=== PATIENT | female | born 1950 | race Caucasian/White ===

== ENCOUNTER → 2023-02-27 12:08 | Outpatient (CLI) | payer OTHER, SELFPAY ==
[2023-02-27 13:28] LABS: BUN Creatinine Ratio 19.4 (6-22); Blood Urea Nitrogen 13 mg/dL (7-17); Calcium 9.3 mg/dL (8.4-10.2); Carbon Dioxide 30 mmol/L (22-32); Chloride 103 mmol/L (98-107); Estimated Glomerular Filt Rate > 60 mL/min (>60); Glucose 85 mg/dL (80-110); HEMOLYSIS < 15 (0-50); Potassium 4.2 mmol/L (3.4-5.1); Sodium 141 mmol/L (137-145)
== END ==
PROVIDERS: PCP Family Medicine; Referring Provider Family Medicine; Visit Provider Family Medicine
DX: I10 Essential (primary) hypertension (principal)
CPT/HCPCS: 36415; 80048

== ENCOUNTER → 2023-03-27 08:00 | Outpatient (CLI) | payer OTHER, SELFPAY ==
[2023-03-27 09:46] LABS: BUN Creatinine Ratio 25.7 (6-22); Blood Urea Nitrogen 18 mg/dL (7-17); Carbon Dioxide 27 mmol/L (22-32); Chloride 105 mmol/L (98-107); Estimated Glomerular Filt Rate > 60 mL/min (>60); Glucose 107 mg/dL (80-110); HEMOLYSIS < 15 (0-50); Potassium 4.5 mmol/L (3.4-5.1); Sodium 139 mmol/L (137-145)
== END ==
PROVIDERS: PCP Family Medicine; Referring Provider Family Medicine; Visit Provider Family Medicine
DX: I10 Essential (primary) hypertension (principal)
CPT/HCPCS: 36415; 80048

== ENCOUNTER 2024-07-27 18:46 | Inpatient (IN) | payer OTHER, SELFPAY ==
[2024-07-27] VITALS (17 sets, daily range): BP systolic 153–202; BP diastolic 69–97; PULSE 57–98; RESP 9–23; TEMP 36.3; O2SAT 95–99; BMI 31.2
--- NOTE | 2024-07-27 18:58 | DI.RAD.S_ITS ---
PROCEDURE: XR CHEST 1V INDICATIONS: Hypertension TECHNIQUE: One view of the chest was acquired. COMPARISON: None. FINDINGS: Surgical changes and devices: None. Lungs and pleura: Lungs are clear. No pleural effusions or pneumothorax. Mediastinum: Mediastinal contours appear normal. Heart size is normal. Bones and chest wall: No suspicious bony lesions. Overlying soft tissues appear unremarkable. IMPRESSION: No acute cardiopulmonary pathology. Dictated by: Hunter Adams M.D. on 07/27/2024 at 19:16 Approved by: Hunter Adams M.D. on 07/27/2024 at 19:16
[2024-07-27 19:06] LABS: Add Manual Diff / Slide Review NO; Basophils Absolute Auto 100 /uL (0-100); Basophils Percent Auto 0.8 % (0-2); Eosinophils Absolute Auto 100 /uL (0-450); Eosinophils Percent Auto 1.4 % (2-4); Hematocrit 42.1 % (36-46); Hemoglobin 14.1 g/dL (12.0-16.0); Lymphocytes Absolute Auto 1600 /uL (1100-4500); Lymphocytes Percent Auto 21.9 % (25-40); Mean Corpuscular HGB Conc 33.5 % (30-36); Mean Corpuscular Hemoglobin 30.5 PG (26-34); Monocytes Absolute Auto 500 /uL (0-900); Monocytes Percent Auto 7.4 % (3-14); Neutrophils Absolute Auto 4900 /uL (1500-7000); Neutrophils Percent Auto 68.5 % (50-75); Platelet Count 301 X10^3/uL (150-400); Red Blood Cell Count 4.63 X10^6/uL (4.0-5.2); Red Cell Distribution Width 13.4 % (11.6-14.8); White Blood Cell Count 7.2 X10^3/uL (4.5-11.0)
--- NOTE | 2024-07-27 19:17 | ED_ITS ---
HPI - General Adult General Chief complaint: Hypertension Stated complaint: HBP Time Seen by Provider: 07/27/24 18:54 Source: patient Mode of arrival: Ambulatory History of Present Illness HPI narrative: Patient is a 74-year-old female who is here for evaluation of high blood pressure and a headache. Patient states she has a history of high blood pressure. She was on losartan. She takes this medication 1 time a day. She has been taking this medication on a daily basis for at least a year if not longer. Has not missed a dose. She takes her blood pressure 2 times a day. She has a list of her blood pressure is with her and over the past week her systolic blood pressures have been in the 130s to 140s and diastolic in the 70s to 80s. This is where she was at baseline. Yesterday she took her blood pressure and her systolic was in the 150s. In the evening she took it again and it was in the 190s and then last evening it was greater than 200. She contacted EMS who came out to see her. She subsequently was not transferred to the hospital. When she took her blood pressures again today they were again consistently in the 200s. She does have a slight headache. No chest pain. No shortness of breath. No lower extremity swelling. She has taken her blood pressure medication. No vision changes. Related Data Home Medications Medication Instructions Recorded Confirmed losartan 50 mg tablet 50 mg PO DAILY 07/27/24 07/27/24 simvastatin 40 mg tablet 40 mg PO ONCE PM 07/27/24 07/27/24 Allergies Allergy/AdvReac Type Severity Reaction Status Date / Time No Known Drug Allergies Allergy Verified 07/27/24 18:55 Review of Systems Review of Systems ROS Unobtainable: All systems reviewed & are unremarkable except as noted in HPI and below Patient History Medical History Hypertension Exam Initial Vital Signs Initial Vital Signs: Vital Signs Pulse Rate 81 07/27/24 18:51 Blood Pressure 202/97 H 07/27/24 18:51 Pulse Oximetry 99 07/27/24 18:51 Const General: cooperative, comfortable and No ill appearing HENMT Head: normal to inspection and normocephalic Resp Effort & Inspection: normal respiratory effort Auscultation: clear to auscultation bilaterally Cardio Rate: regular rate Rhythm: regular rhythm GI Inspection: normal to inspection and non-distended Skin General: no rashes or lesions noted Neuro General: patient alert, patient awake, patient oriented x3 and moves all extremities Extrem General: No edema Course Orders Ordered: ED Orders 07/27/24 18:58 XR chest 1V Stat Complete Blood Count AUTO DIFF Stat Comprehensive Metabolic Panel Stat Lipase Stat Magnesium Stat NT-proBNP (BNP-Adult 18+) Stat PTT Partial Thromboplastin Oskar Stat Prothrombin Time INR Stat Troponin & CK Cardiac Panel Stat EKG-12 Lead Stat 07/27/24 19:17 CT head/brain wo con Stat 07/27/24 21:20 Troponin & CK Cardiac Panel Stat 07/27/24 22:30 PTT Partial Thromboplastin Oskar Q6H 07/28/24 04:30 PTT Partial Thromboplastin Oskar Q6H 07/28/24 05:00 Hemoglobin and Hematocrit DAILY Platelet Count DAILY 07/28/24 10:30 PTT Partial Thromboplastin Oskar Q6H 07/28/24 16:30 PTT Partial Thromboplastin Oskar Q6H 07/29/24 05:00 Hemoglobin and Hematocrit DAILY Platelet Count DAILY Heparin Sodium/Dextrose (Heparin Drip) 25,000 unit in 500 mls @ 20.423 mls/hr IV CONT FAVIOLA; Protocol Last Admin: 07/27/24 23:05 Dose: 11.75 units/kg/hr, 20 mls/hr Documented By: JIMMIE Co-signed By: CATHRYN Sumatriptan Succinate (Sumatriptan 25 Mg Tablet) 25 mg PO Q2H PRN PRN Reason: Headache Last Admin: 07/27/24 23:17 Dose: 25 mg Documented By: JIMMIE Discontinued Medications Heparin Sodium (Porcine) (Heparin 5,000 Unit/Ml Vial) 5,000 unit 60 unit/kg (5000 unit) IV NOW ONE Stop: 07/27/24 22:25 Last Admin: 07/27/24 23:08 Dose: 5,000 unit Documented By: JIMMIE Hydralazine HCl (Hydralazine 20 Mg/Ml Vial) 10 mg IV NOW ONE Stop: 07/27/24 19:18 Last Admin: 07/27/24 19:26 Dose: 10 mg Documented By: JIMMIE Metoprolol Tartrate (Metoprolol Tartrate 5 Mg/5 Ml Inj) 5 mg IV NOW ONE Stop: 07/27/24 22:50 Last Admin: 07/27/24 23:17 Dose: 5 mg Documented By: SB Vital Signs Vital signs: Vital Signs - 8 hr 07/27/24 18:51 07/27/24 18:56 07/27/24 18:58 Temperature 97.3 F L Pulse Rate 81 85 62 Respiratory Rate 17 Blood Pressure 202/97 H 202/97 H 157/82 H Pulse Oximetry 99 99 98 Oxygen Delivery Method Room Air 07/27/24 19:26 07/27/24 19:29 07/27/24 19:31 Temperature Pulse Rate 60 58 L 57 L Respiratory Rate 14 Blood Pressure 157/82 H 158/80 H 175/81 H Pulse Oximetry 99 99 Oxygen Delivery Method Room Air 07/27/24 19:56 07/27/24 20:29 07/27/24 20:31 Temperature Pulse Rate 70 79 74 Respiratory Rate 13 14 Blood Pressure 157/82 H 185/81 H 167/70 H Pulse Oximetry 97 99 Oxygen Delivery Method Room Air 07/27/24 21:00 07/27/24 21:30 07/27/24 22:00 Temperature Pulse Rate 78 75 75 Respiratory Rate 16 14 17 Blood Pressure 153/69 H 161/72 H Pulse Oximetry 96 95 96 Oxygen Delivery Method Room Air 07/27/24 22:00 07/27/24 22:32 07/27/24 22:33 Temperature Pulse Rate 98 H Respiratory Rate Blood Pressure 160/74 H 187/84 H Pulse Oximetry 98 Oxygen Delivery Method 07/27/24 22:33 07/27/24 23:00 07/27/24 23:01 Temperature Pulse Rate 89 78 Respiratory Rate 12 9 L Blood Pressure 165/71 H Pulse Oximetry 98 98 Oxygen Delivery Method 07/27/24 23:01 07/27/24 23:30 07/27/24 23:30 Temperature Pulse Rate 80 61 Respiratory Rate 18 23 Blood Pressure 177/75 H 177/75 H Pulse Oximetry 97 97 Oxygen Delivery Method Medical Decision Making Lab Data Lab results reviewed: Yes I reviewed the patient's lab results. 07/27/24 18:58 07/27/24 18:58 Labs: Lab Results 07/27/24 07/27/24 Range/Units 18:58 21:20 WBC 7.2 (4.5-11.0) X10^3/uL RBC 4.63 (4.0-5.2) X10^6/uL Hgb 14.1 (12.0-16.0) g/dL Hct 42.1 (36-46) % MCV 91.0 (80-100) fL MCH 30.5 (26-34) PG MCHC 33.5 (30-36) % RDW 13.4 (11.6-14.8) % Plt Count 301 (150-400) X10^3/uL Neut % (Auto) 68.5 (50-75) % Lymph % (Auto) 21.9 L (25-40) % [place] % (Auto) 7.4 (3-14) % Eos % (Auto) 1.4 L (2-4) % Baso % (Auto) 0.8 (0-2) % Neut # (Auto) 4900 (9185-0122) /uL Lymph # (Auto) 1600 (0607-7266) /uL [place] # (Auto) 500 (0-900) /uL Eos # (Auto) 100 (0-450) /uL Baso # (Auto) 100 (0-100) /uL PT 11.0 (9.4-12.5) SECONDS INR 1.0 (0.9-1.3) APTT 30 (25.1-36.5) SECONDS Sodium 141 (137-145) mmol/L Potassium 4.1 (3.4-5.1) mmol/L Chloride 109 H (98-107) mmol/L Carbon Dioxide 22 (22-32) mmol/L BUN 13 (7-17) mg/dL Creatinine 0.60 (0.52-1.04) mg/dL Estimated GFR > 60 (>60) mL/min BUN/Creatinine Ratio 21.7 (6-22) Glucose 102 (80-110) mg/dL Calcium 9.1 (8.4-10.2) mg/dL Magnesium 2.1 (1.6-2.3) mg/dL Total Bilirubin 0.8 (0.2-1.3) mg/dL AST 50 H (14-36) IU/L ALT 25 (<35) IU/L Alkaline Phosphatase 106 (38-126) U/L Total Creatine Kinase 80 68 (30-135) U/L Troponin I 0.066 H 0.137 H* (0.01-0.034) ng/mL NT-Pro-B Natriuret Pep 346 H (<125) pg/mL Total Protein 7.8 (6.3-8.2) g/dL Albumin 4.6 (3.5-5.0) g/dL Globulin 3.2 (1.7-4.1) g/dL Albumin/Globulin Ratio 1.4 (1.0-2.8) Lipase 32 (23-300) U/L Imaging Data Chest x-ray: Radiologist's Impression: PROCEDURE: XR CHEST 1V INDICATIONS: Hypertension TECHNIQUE: One view of the chest was acquired. COMPARISON: None. FINDINGS: Surgical changes and devices: None. Lungs and pleura: Lungs are clear. No pleural effusions or pneumothorax. Mediastinum: Mediastinal contours appear normal. Heart size is normal. Bones and chest wall: No suspicious bony lesions. Overlying soft tissues appear unremarkable. IMPRESSION: No acute cardiopulmonary pathology. CT scan - head: Radiologist's Impression: PROCEDURE: CT HEAD/BRAIN WO CON INDICATIONS: HTN and headache TECHNIQUE: Noncontrast 4.5 mm thick angled axial sections acquired from the foramen magnum to the vertex, with coronal and sagittal reformats. For radiation dose reduction, the following was used: automated exposure control, adjustment of mA and/or kV according to patient size. COMPARISON: None. FINDINGS: Image quality: Diagnostic. CSF spaces: Basal cisterns are patent. No extra-axial fluid collections. The ventricles are symmetric in size and shape. Brain: No intracranial bleeds or masses. There is cerebral volume loss for age, with resultant ventricular and sulcal prominence. There are periventricular and deep white matter chronic small vessel ischemic changes. There is intracranial internal carotid artery atherosclerosis. Skull and face: Calvarium and visualized facial bones appear intact, without suspicious lesions. Sinuses: Visualized sinuses and mastoids are clear. IMPRESSION: No acute intracranial pathology. ECG Data Attestation: I personally reviewed and interpreted this ECG as follows: Interpretation: Sinus bradycardia Ventricular rate of 56 Normal axis Normal QRS No ST T wave changes MDM Narrative Medical decision making narrative: Patient did arrive hypertensive. With a slight headache. Subsequent head CT is negative. Chest x-ray is unremarkable. Nonischemic EKG. Initial troponin elevated and 2 hour repeat shows a increase in this value. She was started on heparin. Because her baseline blood pressure is known to be in the 130 systolic range she was given a dose of hydralazine. This did improve her blood pressure somewhat but it was now started to creep back up. She was given a dose of metoprolol. She was started on heparin. I did discuss the case with Dr. Schroeder on-call for cardiology who did not feel that the patient needed transferred for an emergent catheterization. He recommended blood pressure control, trending troponins, echo and stress testing. She does have a history of migraines. She says she takes Maxalt as needed. We do not have that on formulary so she was given a dose of sumatriptan. Discussed the case with Dr. Argueta he was the hospitalist on-call who will admit for further evaluation and treatment. Discharge Plan Departure Patient Disposition: Admitted As Inpatient Clinical Impression: Hypertensive emergency, Headache Admit Date/Time: 07/27/24 23:51 Admit Provider: Alex Padilla
[2024-07-27] MEDS: HYDRALAZINE 20 MG/ML VIAL 10 MG IV (19:26)
--- NOTE | 2024-07-27 19:27 | EKG_ITS ---
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
[2024-07-27 19:28] LABS: Alanine Aminotransferase 25 IU/L (<35); Albumin 4.6 g/dL (3.5-5.0); Albumin Globulin Ratio 1.4 (1.0-2.8); Alkaline Phosphatase 106 U/L (38-126); Aspartate Aminotransferase 50 IU/L (14-36); BUN Creatinine Ratio 21.7 (6-22); Bilirubin Total 0.8 mg/dL (0.2-1.3); Blood Urea Nitrogen 13 mg/dL (7-17); Calcium 9.1 mg/dL (8.4-10.2); Carbon Dioxide 22 mmol/L (22-32); Chloride 109 mmol/L (98-107); Creatine Kinase 80 U/L (30-135); Estimated Glomerular Filt Rate > 60 mL/min (>60); Globulin 3.2 g/dL (1.7-4.1); Glucose 102 mg/dL (80-110); Lipase 32 U/L (23-300); Sodium 141 mmol/L (137-145); Total Protein 7.8 g/dL (6.3-8.2)
[2024-07-27 19:36] LABS: HEMOLYSIS 125 (0-50)
[2024-07-27 19:38] LABS: Potassium 4.1 mmol/L (3.4-5.1)
[2024-07-27 19:40] LABS: Troponin I 0.066 ng/mL (0.01-0.034)
[2024-07-27 21:45] LABS: Creatine Kinase 68 U/L (30-135)
[2024-07-27 22:06] LABS: Troponin I 0.137 ng/mL (0.01-0.034)
[2024-07-27 22:42] LABS: Magnesium 2.1 mg/dL (1.6-2.3)
[2024-07-27 22:49] LABS: PTT Partial Thromboplastin Tim 30 SECONDS (25.1-36.5)
[2024-07-27 22:52] LABS: NT-proBNP (BNP-Adult 18+) 346 pg/mL (<125)
[2024-07-27] MEDS: HEPARIN DRIP 25,000 UNIT/500 ML IV.SOLN 20 UNIT IV (23:05)
[2024-07-27] MEDS: HEPARIN 5,000 UNIT/ML VIAL 5000 UNIT IV (23:08)
[2024-07-27] MEDS: SUMAtriptan 25 MG TABLET PO (23:17)
[2024-07-27] MEDS: METOPROLOL TARTRATE 5 MG/5 ML INJ IV (23:17)
[2024-07-28] VITALS (8 sets, daily range): BP systolic 115–184; BP diastolic 73–92; PULSE 64–74; RESP 13–18; TEMP 36.4–37; O2SAT 96–98; BMI 30.6
--- NOTE | 2024-07-28 00:38 | DI.ECHO.S_ITS ---
[facility] +---------+ Hospital : : [address] : : [place] : : [id number] : : Phone: [phone] Echocardiogram Report + :Name: AHSAN CAREY Study Date: 07/28/2024 Height: 65 in : :Hospital ReadingLocation: Weight: 187 lb : : Gender: Female BSA: 1.9 m2 : :: 1950 Age: 74 yrs BP: 138/73 mmHg: :Reason For Study: NSTEMI : :Ordering Physician: SARINA : :RAVINDER FALCON Performed By: Brian Gastelum : :Referring: RAVINDER MILLARD : + Interpretation Summary The ejection fraction is estimated to be 60-65%. Diastolic parameters suggest probable normal left ventricular diastolic function and normal filling pressures. The right ventricle is normal in size and function. No significant valvular abnormalities. The right ventricular systolic pressure is estimated to be at least 29 mmHg based on an estimated right atrial pressure of 3 mm Hg. Procedure: A two-dimensional transthoracic echocardiogram with color flow and Doppler was performed. The study quality was technically good. There is no prior echocardiogram noted for this patient. The patient was in normal sinus rhythm during the exam. Left Ventricle: The left ventricle is normal in size. There is normal left ventricular wall thickness. There is no ventricular septal defect visualized. The ejection fraction is estimated to be 60-65%. There are no focal wall motion abnormalities. Diastolic parameters suggest probable normal left ventricular diastolic function and normal filling pressures. Right Ventricle: The right ventricle is normal in size and function. Atria: The left atrial size is normal. Right atrial size is normal. There is no Doppler evidence for an atrial septal defect. Mitral Valve: The mitral valve is normal in structure and function. There is trace mitral regurgitation. Aortic Valve: The aortic valve is trileaflet. The aortic valve opens well. There is no aortic valve stenosis. No aortic regurgitation is present. Tricuspid Valve: The tricuspid valve is normal in structure and function. There is trace tricuspid regurgitation. The right ventricular systolic pressure is estimated to be at least 29 mmHg based on an estimated right atrial pressure of 3 mm Hg. Pulmonic Valve: The pulmonic valve is normal in structure and function. There is trace pulmonic regurgitation. Great Vessels: The aortic root is normal size. The dimensions of the ascending aorta are normal. The pulmonary artery is normal size. The IVC is of normal diameter and collapses greater than 50% with a sniff. This suggests a low right atrial pressure of 3 mm Hg. Pericardium/ Pleura There is no pericardial effusion. There is no pleural effusion. MMode/2D Measurements & Calculations LVIDd: 4.6 cm LVOT diam: 2.0 cm LVIDs: 2.8 cm Ao root diam: 2.9 cm FS: 38.6 % asc Aorta Diam: 2.8 cm EPSS: 0.43 cm Ao Arch Diam (Prox Trans): 2.5 cm IVSd: 0.73 cm LVPWd: 0.81 cm LV larry. diameter/BSA (cm/m^2): 2.4 LV sys. diameter/BSA (cm/m^2): 1.5 LA A2 area: 13.9 cm2 RA long axis: 4.3 cm LA A4 area: 18.9 cm2 RA area: 11.6 cm2 LA length (vol): 5.7 cm RA vol: 26.9 ml LA vol: 39.3 ml RA : 14.0 ml/m2 LA vol index: 20.5 ml/m2 IVC diam: 1.4 cm RVD1 (basal): 3.0 cm RVD2 (mid): 2.2 cm TAPSE: 2.3 cm Doppler Measurements & Calculations Ao V2 max: 137.4 cm/sec LVOT Max Jose: 106.1 cm/sec Ao V2 mean: 101.2 cm/sec LV V1 max P.5 mmHg Ao max P.5 mmHg LV V1 VTI: 25.4 cm Ao mean P.4 mmHg LUCAS(I,D): 2.4 cm2 Ao V2 VTI: 32.0 cm LUCAS(V,D): 2.3 cm2 sev ratio: 0.79 LUCAS indexed to BSA (cm^2/m^2): 1.2 MV E max jose: 61.3 cm/sec TR max jose: 254.6 cm/sec MV A max jose: 87.0 cm/sec TR max P.9 mmHg MV E/A: 0.70 PA V2 max: 86.7 cm/sec Med Peak E' Jose: 6.8 cm/sec PA V2 mean: 58.7 cm/sec E/E' med: 9.0 PA mean P.6 mmHg Lat Peak E' Jose: 11.2 cm/sec PA pr(Accel): 19.1 mmHg E/E' lat: 5.5 E/e' average: 7.2 MV dec time: 0.18 sec SV(LVOT): 76.0 ml Reading Physician:09:02 AM
[2024-07-28] MEDS: ACETAMINOPHEN 325 MG TABLET 650 MG PO ×3 (01:22→17:29)
[2024-07-28] MEDS: ONDANSETRON 4 MG/2 ML INJ IV (01:22)
[2024-07-28] MEDS: ATORVASTATIN 20 MG TABLET PO ×2 (01:23→21:37)
[2024-07-28] MEDS: LOSARTAN 50 MG TABLET PO ×2 (01:52→09:00)
--- NOTE | 2024-07-28 01:55 | PC.NURSE ---
Addendum entered by Anna Cheema R.N. 07/28/24 06:13: PTT: 100 @ 0429, paused infusion for 1 hour & restarted at 0530 (see MAR for dosage change). Next PTT due at 1130. Original Note: weight shifter: Patient arrived from ED @ approximately 0030. Patient is AxOx4, ambulatory with SBA. Denies CP, dizziness, SOB. Reports 5/10 headache & nausea without emesis. BP elevated (see documentation), SpO2 97% on RA. Cont tele placed. Heparin gtt infusing. MD notified of assessment, spoke with patient at bedside. Patient verbalized understanding of plan of care. Medicated as ordered for hypertension & nausea. Oriented to call-light, fall precautions in place, plan of care ongoing.
[2024-07-28 04:19] LABS: Hematocrit 40.7 % (36-46); Hemoglobin 13.7 g/dL (12.0-16.0); Platelet Count 292 X10^3/uL (150-400)
[2024-07-28 04:29] LABS: PTT Partial Thromboplastin Tim 100 SECONDS (25.1-36.5)
[2024-07-28 05:38] LABS: Troponin I 0.096 ng/mL (0.01-0.034)
--- NOTE | 2024-07-28 06:42 | PM.HP.1 ---
History of Present Illness History of Present Illness Date Patient Seen: 07/28/24 Chief complaint: Headache, High Blood Pressure Narrative: 74 y/o with PMH of HLD and HTN, on steady regimen of Losartan 50 mg daily, with average SBPs ~ 130, presented to ED complaining on headache and high blood pressure readings at home in the previous 24 hours. On admission w/o chest pain, diaphoresis, shortness of breath. Nauseated, with SBPs ~ 200 and elevated troponins. PFSH Medical History Hypertension Social History Smoking Status: Never smoker alcohol intake: never Meds Home Medications and Allergies Home Medications Medication Instructions Recorded Confirmed Type losartan 50 mg tablet 50 mg PO DAILY 07/27/24 07/27/24 History simvastatin 40 mg tablet 40 mg PO ONCE PM 07/27/24 07/27/24 History Allergies Allergy/AdvReac Type Severity Reaction Status Date / Time No Known Drug Allergies Allergy Verified 07/27/24 18:55 Review of Systems Constitutional Comments: Generalized weakness No sweats, fever, chills Cardiovascular Comments: w/o chest pain or palpitations Respiratory Comments: w/o shortness of breath Gastrointestinal Comments: nauseated Genitourinary Comments: w/o voiding difficulties Hematologic/Lymphatic Comments: w/o bleeding or easy bruising Exam Vital Signs (past 8 hours): - 07/27/24 20:31 07/27/24 21:00 07/27/24 21:30 Temperature Pulse Rate 74 78 75 Respiratory Rate 14 16 14 Blood Pressure 167/70 H 153/69 H 161/72 H Pulse Oximetry 99 96 95 Oxygen Delivery Method Room Air Room Air Oxygen Flow Rate 07/27/24 22:00 07/27/24 22:00 07/27/24 22:32 Temperature Pulse Rate 75 98 H Respiratory Rate 17 Blood Pressure 160/74 H Pulse Oximetry 96 98 Oxygen Delivery Method Oxygen Flow Rate 07/27/24 22:33 07/27/24 22:33 07/27/24 23:00 Temperature Pulse Rate 89 78 Respiratory Rate 12 9 L Blood Pressure 187/84 H Pulse Oximetry 98 98 Oxygen Delivery Method Oxygen Flow Rate 07/27/24 23:01 07/27/24 23:01 07/27/24 23:30 Temperature Pulse Rate 80 Respiratory Rate 18 Blood Pressure 165/71 H 177/75 H Pulse Oximetry 97 Oxygen Delivery Method Oxygen Flow Rate 07/27/24 23:30 07/28/24 00:00 07/28/24 01:07 Temperature 98.2 F Pulse Rate 61 66 68 Respiratory Rate 23 13 18 Blood Pressure 177/75 H 184/86 H 174/92 H Pulse Oximetry 97 96 96 Oxygen Delivery Method Room Air Oxygen Flow Rate 0 07/28/24 03:58 Temperature 98.6 F Pulse Rate 74 Respiratory Rate 18 Blood Pressure 138/73 Pulse Oximetry 97 Oxygen Delivery Method Oxygen Flow Rate 0 Oxygen Delivery Method Room Air Oxygen Flow Rate 0 Const Other: In no distress, still with headache Resp Other: normal respiratory effort, not wheezy Cardio Other: RRR Neuro Other: w/o deficits Extrem Other: w/o swelling Psych Other: lucid, appropriate mood Objective ECG Impression: Sinus bradycardia 56 Labs 07/28/24 04:10 07/27/24 18:58 Labs: Laboratory Results - last 24 hr 07/27/24 07/27/24 07/28/24 18:58 21:20 04:10 WBC 7.2 RBC 4.63 Hgb 14.1 13.7 Hct 42.1 40.7 MCV 91.0 MCH 30.5 MCHC 33.5 RDW 13.4 Plt Count 301 292 Neut % (Auto) 68.5 Lymph % (Auto) 21.9 L [place] % (Auto) 7.4 Eos % (Auto) 1.4 L Baso % (Auto) 0.8 Neut # (Auto) 4900 Lymph # (Auto) 1600 [place] # (Auto) 500 Eos # (Auto) 100 Baso # (Auto) 100 PT 11.0 INR 1.0 APTT 30 Sodium 141 Potassium 4.1 Chloride 109 H Carbon Dioxide 22 BUN 13 Creatinine 0.60 Estimated GFR > 60 BUN/Creatinine Ratio 21.7 Glucose 102 Calcium 9.1 Magnesium 2.1 Total Bilirubin 0.8 AST 50 H ALT 25 Alkaline Phosphatase 106 Total Creatine Kinase 80 68 Troponin I 0.066 H 0.137 H* NT-Pro-B Natriuret Pep 346 H Total Protein 7.8 Albumin 4.6 Globulin 3.2 Albumin/Globulin Ratio 1.4 Lipase 32 Assessment & Plan Assessment and plan (1) Hypertensive emergency: Status: Acute (2) NSTEMI (non-ST elevated myocardial infarction): Status: Acute (3) Headache: Status: Acute (4) HLD (hyperlipidemia): Status: Acute Assessment & Plan narrative: Uncontrolled HTN / Hypertensive Emergency - compliant with Losartan 50 mg daily, checks BP daily and has a log showing average SBP of 130 - she had Na-loaded soup the day before - Losartan, prn metoprolol and hydralazine iv, telemetry monitoring NSTEMI - likely demand ischemia from 24 hours of 200 systolic hypertension - ED attending Dr Nelson discussed with Dr. Schroeder on-call for cardiology who did not feel that the patient needed transferred for an emergent catheterization. He recommended blood pressure control, trending troponins, echo and stress testing - heparin drip, monitored CBC - troponin peaked at 10 PM on 07/27 - echocardiogram - statin Time-Based Coding :: [TOTAL MINUTES] spent with patient and on the chart (including review of chart, obtaining history, exam, reviewing outside data, placing orders, documenting exam and treatment plan, and counseling patient) on [DATE].
[2024-07-28 11:58] LABS: PTT Partial Thromboplastin Tim 44 SECONDS (25.1-36.5)
--- NOTE | 2024-07-28 12:11 | P.PN_ITS ---
Subjective Subjective Interval history: She was admitted with hypertensive urgency and elevated troponins. ECG is static and echo was unremarkable. She was no history of CAD. She has been on blood pressure meds for last year and a half. Subjective: Feeling much better. No dyspnea, minimal headache. No chest pain. She denies chest pain with exertion, and walks her dog every morning. Exam Vital Signs (past 8 hours): - 07/28/24 09:00 07/28/24 09:22 Temperature 97.6 F Pulse Rate 74 65 Respiratory Rate 16 Blood Pressure 138/73 135/76 Pulse Oximetry 97 Oxygen Delivery Method Room Air Oxygen Flow Rate 0 Narrative Exam Narrative: NAD, alert and oriented. Fluent speech. Lungs are clear, normal rate and effort. Heart is regular, no murmur gallop or rub. Abdomen is soft, non distended. Extremities are free of edema. Objective ECG Impression: NSR Imaging Echo: Radiologist's impression: The ejection fraction is estimated to be 60-65%. Diastolic parameters suggest probable normal left ventricular diastolic function and normal filling pressures. The right ventricle is normal in size and function. No significant valvular abnormalities. The right ventricular systolic pressure is estimated to be at least 29 mmHg based on an estimated right atrial pressure of 3 mm Hg. Labs 07/28/24 04:10 07/27/24 18:58 Labs: Laboratory Results - last 24 hr 07/27/24 07/27/24 07/28/24 18:58 21:20 04:10 WBC 7.2 RBC 4.63 Hgb 14.1 13.7 Hct 42.1 40.7 MCV 91.0 MCH 30.5 MCHC 33.5 RDW 13.4 Plt Count 301 292 Neut % (Auto) 68.5 Lymph % (Auto) 21.9 L [facility] % (Auto) 7.4 Eos % (Auto) 1.4 L Baso % (Auto) 0.8 Neut # (Auto) 4900 Lymph # (Auto) 1600 [facility] # (Auto) 500 Eos # (Auto) 100 Baso # (Auto) 100 PT 11.0 INR 1.0 APTT 30 100 H* D Sodium 141 Potassium 4.1 Chloride 109 H Carbon Dioxide 22 BUN 13 Creatinine 0.60 Estimated GFR > 60 BUN/Creatinine Ratio 21.7 Glucose 102 Calcium 9.1 Magnesium 2.1 Total Bilirubin 0.8 AST 50 H ALT 25 Alkaline Phosphatase 106 Total Creatine Kinase 80 68 Troponin I 0.066 H 0.137 H* 0.096 H NT-Pro-B Natriuret Pep 346 H Total Protein 7.8 Albumin 4.6 Globulin 3.2 Albumin/Globulin Ratio 1.4 Lipase 32 07/28/24 11:32 WBC RBC Hgb Hct MCV MCH MCHC RDW Plt Count Neut % (Auto) Lymph % (Auto) [facility] % (Auto) Eos % (Auto) Baso % (Auto) Neut # (Auto) Lymph # (Auto) [facility] # (Auto) Eos # (Auto) Baso # (Auto) PT INR APTT 44 H D Sodium Potassium Chloride Carbon Dioxide BUN Creatinine Estimated GFR BUN/Creatinine Ratio Glucose Calcium Magnesium Total Bilirubin AST ALT Alkaline Phosphatase Total Creatine Kinase Troponin I NT-Pro-B Natriuret Pep Total Protein Albumin Globulin Albumin/Globulin Ratio Lipase PFSH Medical History Hypertension Social History Smoking Status: Never smoker alcohol intake: never Assessment & Plan Assessment & Plan narrative: 1. Hypertensive urgency, present on admission and improving. 2. Demand ischemia, present on admission and active. 3. HLD, present on admission and active. Plan: -add amlodipine, 2.5 mg daily, 2 losartan 50 mg daily. -trend troponins -stress test for risk stratification given her elevated troponins. -out of bed, and ambulate as able. GURU is July 29, she requires 2 midnights of hospital care at this point for evaluation of hypertensive urgency and elevated troponins. Full resuscitation. Time-Based Coding :: [TOTAL MINUTES] spent with patient and on the chart (including review of chart, obtaining history, exam, reviewing outside data, placing orders, documenting exam and treatment plan, and counseling patient) on [DATE]. Quality MIPS - Admit I confirm the patient?s Advance Care Plan is present, Code status is documented, Surrogate decision maker is in patient?s record [If Yes, STOP here]: Yes MIPS - Meds 'Current medications' to include all prescriptions, [id number] products, herbals, cannabis/cannabidiol products, and vitamin/mineral/dietary (nutritional) supplements. I have utilized all available resources to obtain, update, or review the patient?s current medications. [If Yes, STOP here]: Yes
[2024-07-28] MEDS: AMLODIPINE 5 MG TABLET 2.5 MG PO (12:40)
--- NOTE | 2024-07-28 13:15 | CM.DANOTE ---
Initial DCP Assessment Visit Note Reviewed EMR and team rounds for status updates. Met with pt and her friend at bedside to introduce self and role, pt was found to be awake/oriented and able to express her readiness to d/c home. Pt lives alone in her own home in [place], she is independent at baseline. She has a friend who will be able to transport her home and assist with any care needs at time of d/c. Payor: [facility] Adv PCP: Irwin Crooks Pt is a 74 year-old F who presented to the ED last evening with persistent high blood pressure and a headache, despite having been taking her high blood pressure medication. She did have elevated troponins as well, which worsened when was later re-checked. Cardiology was consulted while she was still in the ED, they did not recommend transfer, but recommended she be admitted and continued monitoring for her blood pressure, trend troponins, echo, and stress test. Although she was feeling better and wanted to d/c home, Dr. Tubbs is going to keep her one more night due to not quite stable enough yet for home d/c. DCP will continue to monitor and assist with any further d/c needs as they evolve. Discharge Planning/Care Management CM Discharge Assessment Start: 07/28/24 13:11 Freq: Status: Active Protocol: Document 07/28/24 13:12 DPL (Rec: 07/28/24 13:14 DPL [id number]) Discharge Planning Assessment Assigned Business Director HEIDI Huitron Advance Directives? Yes Advance Directives on File No History Provided By Patient,Friend,Medical Record Expected Length of Stay 2 Has Patient been admitted in last 30 No days? Prior Living Arrangements House Household Members none Type of transporation used prior to Drives own vehicle admit Independent with ADL's Yes Is patient alert and oriented? Yes Caregiver for Another No Comment No identified d/c needs at this time. Barriers to Discharge No Discharge Plan Home Referrals Initiated None needed Whiteboard Updated in Patient Room with Yes name and ext. # of Business Director Review Status In Process Please Provide Date Initial DC 07/28/24 Assessment Was Performed
[2024-07-28 16:54] LABS: PTT Partial Thromboplastin Tim 53 SECONDS (25.1-36.5)
[2024-07-29] VITALS: BP 116/64; PULSE 75; RESP 18; TEMP 36.6; O2SAT 97
[2024-07-29 04:00] VITALS: BP 127/70; PULSE 66; RESP 12; TEMP 36.9; O2SAT 97
[2024-07-29] MEDS: HEPARIN DRIP 25,000 UNIT/500 ML IV.SOLN 16.678 UNIT IV (05:19)
[2024-07-29 06:22] LABS: Add Manual Diff / Slide Review NO; Basophils Absolute Auto 100 /uL (0-100); Basophils Percent Auto 0.9 % (0-2); Eosinophils Absolute Auto 200 /uL (0-450); Eosinophils Percent Auto 2.9 % (2-4); Hematocrit 39.9 % (36-46); Hemoglobin 13.4 g/dL (12.0-16.0); Lymphocytes Absolute Auto 2000 /uL (1100-4500); Lymphocytes Percent Auto 29.8 % (25-40); Mean Corpuscular HGB Conc 33.6 % (30-36); Mean Corpuscular Hemoglobin 30.3 PG (26-34); Mean Corpuscular Volume 90.2 fL (80-100); Monocytes Absolute Auto 400 /uL (0-900); Monocytes Percent Auto 6.4 % (3-14); Neutrophils Absolute Auto 4000 /uL (1500-7000); Platelet Count 264 X10^3/uL (150-400); Red Blood Cell Count 4.42 X10^6/uL (4.0-5.2); Red Cell Distribution Width 13.4 % (11.6-14.8); White Blood Cell Count 6.7 X10^3/uL (4.5-11.0)
[2024-07-29 06:29] LABS: PTT Partial Thromboplastin Tim 71 SECONDS (25.1-36.5)
[2024-07-29 06:39] LABS: BUN Creatinine Ratio 26.5 (6-22); Blood Urea Nitrogen 18 mg/dL (7-17); Calcium 9.1 mg/dL (8.4-10.2); Carbon Dioxide 22 mmol/L (22-32); Chloride 109 mmol/L (98-107); Estimated Glomerular Filt Rate > 60 mL/min (>60); Glucose 99 mg/dL (80-110); HEMOLYSIS < 15 (0-50); Magnesium 2.2 mg/dL (1.6-2.3); Potassium 3.6 mmol/L (3.4-5.1); Sodium 137 mmol/L (137-145)
[2024-07-29 06:48] LABS: NT-proBNP (BNP-Adult 18+) 102 pg/mL (<125)
[2024-07-29 08:00] VITALS: BP 136/80; PULSE 69; RESP 15; TEMP 36.7; O2SAT 95
[2024-07-29 09:26] VITALS: BP 136/80
--- NOTE | 2024-07-29 09:27 | PC.NURSE ---
Day shift - @ 0920 disconnected Pt from Heparin drip for stress test.
--- NOTE | 2024-07-29 10:42 | CM.DPC ---
DCP Cont. Reviewed EMR and team rounds for status updates. Pt has been medically cleared for home d/c, no further CM assistance or resource needs indicated at this time.
--- NOTE | 2024-07-29 13:15 | PM.DS.1 ---
History of Present Illness History of Present Illness Chief complaint: Headache, High Blood Pressure Narrative: From H&P: 74 y/o with PMH of HLD and HTN, on steady regimen of Losartan 50 mg daily, with average SBPs ~ 130, presented to ED complaining on headache and high blood pressure readings at home in the previous 24 hours. On admission w/o chest pain, diaphoresis, shortness of breath. Nauseated, with SBPs ~ 200 and elevated troponins. Discharge Providers Provider Date of admission: 07/27/24 23:51 Discharge Date: 07/29/24 Primary care physician: Irwin Davis MD Consults: None. Discharge provider: Kris Tubbs MD Summary Hospital Course Discharge Diagnosis: 1. Hypertensive urgency, present on admission and improving. 2. Demand ischemia, present on admission and active. 3. HLD, present on admission and active. Hospital Course: Patient was 74-year-old female who presented with hypertensive urgency. She has had reasonably good control of her blood pressure for the last year and a half since starting medications. The patient was placed on additional medication and responded. She did have a mild troponin elevation consistent with demand ischemia. She was no known history of CAD or exertional symptoms of pain or dyspnea. She did undergo a stress test which was read as low risk. Her blood pressure improved substantially with a low-dose of amlodipine as she was felt to be stable for discharge home with close follow up. She was initially placed on a heparin drip, this was stopped at about 24 hours. Status at Discharge Cognitive/behavioral status at discharge: at baseline, oriented Functional status at discharge: independent ambulation Overall status at discharge: patient is back to baseline Time Spent with Patient Time spent: Greater than 30 minutes Exam Vital Signs (past 8 hours): - 07/29/24 08:00 07/29/24 09:26 Temperature 98.1 F Pulse Rate 69 Respiratory Rate 15 Blood Pressure 136/80 136/80 Pulse Oximetry 95 Oxygen Flow Rate 0 Oxygen Delivery Method Room Air Oxygen Flow Rate 0 Narrative Exam Narrative: NAD, alert and oriented. Fluent speech. Lungs are clear, normal rate and effort. Heart is regular, no murmur gallop or rub. Abdomen is soft, non distended. Extremities are free of edema. Objective ECG Impression: Sinus bradycardia Possible Anterior infarct , age undetermined Imaging Multiple studies:: Radiologist's impression: Myocardial perfusion scan: Low risk study. Normal EF. Echo: The ejection fraction is estimated to be 60-65%. Diastolic parameters suggest probable normal left ventricular diastolic function and normal filling pressures. The right ventricle is normal in size and function. No significant valvular abnormalities. The right ventricular systolic pressure is estimated to be at least 29 mmHg based on an estimated right atrial pressure of [address]: No acute intracranial pathology. Chest x-ray: No acute cardiopulmonary pathology. Labs 07/29/24 06:04 07/29/24 06:04 Labs: Laboratory Results - last 24 hr 07/28/24 07/28/24 07/29/24 15:14 16:35 06:04 WBC 6.7 RBC 4.42 Hgb 13.4 Hct 39.9 MCV 90.2 MCH 30.3 MCHC 33.6 RDW 13.4 Plt Count 264 Neut % (Auto) 60.0 Lymph % (Auto) 29.8 [facility] % (Auto) 6.4 Eos % (Auto) 2.9 Baso % (Auto) 0.9 Neut # (Auto) 4000 Lymph # (Auto) 2000 [facility] # (Auto) 400 Eos # (Auto) 200 Baso # (Auto) 100 APTT 53 H D 71 H D Sodium 137 Potassium 3.6 Chloride 109 H Carbon Dioxide 22 BUN 18 H Creatinine 0.68 Estimated GFR > 60 BUN/Creatinine Ratio 26.5 H Glucose 99 Calcium 9.1 Magnesium 2.2 Troponin I 0.040 H NT-Pro-B Natriuret Pep 102 PFSH Medical History Hypertension Social History household members: none Smoking Status: Never smoker alcohol intake: never Discharge Assessment & Plan Assessment and Plan Assessment: 1. Hypertensive urgency, present on admission and improving. 2. Demand ischemia, present on admission and active. 3. HLD, present on admission and active. Plan of Treatment: Stable for discharge home with the addition of amlodipine 2.5 mg daily to her chronic losartan. She was advised to see your PCP within a week. She will also monitor blood pressure at home twice a day. Discharge Plan Discharge Plan Patient Disposition: Home Provider Discharge Comment: Stable for discharge home, low risk stress test. Discharge orders & Medications Prescriptions: New amlodipine [Norvasc] 5 mg Tablet 2.5 mg PO DAILY Qty: 30 2RF Continued losartan 50 mg tablet 50 mg PO DAILY simvastatin 40 mg tablet 40 mg PO ONCE PM Follow up/Referrals: Irwin Davis MD [Primary Care Provider] - Discharge Health Status Multidrug resistant organism: No MDRO Diet/Activity/Treatments Diet: Regular Activity: As tolerated. Visit Report/Discharge Packet Instructions: DI for Malignant Hypertension Stand Alone Forms: Patient Portal/API Discharge Data Primary Care Provider: Irwin Davis
[2024-07-29] MEDS: AMLODIPINE 5 MG TABLET 2.5 MG PO (13:43)
[2024-07-29 13:44] VITALS: BP 160/83
[2024-07-29] MEDS: LOSARTAN 50 MG TABLET PO (13:44)
--- NOTE | 2024-07-30 08:36 | DI.NM.S_ITS ---
DATE OF SERVICE: 07/28/2024 PHARMACOLOGICAL PERFUSION STUDY INDICATIONS: Abnormal troponin with hypertensive urgency, hyperlipidemia. RADIOPHARMACEUTICAL: 27.4 mCi technetium-99m Myoview IV was injected at stress and 10.8 mCi technetium-99m Myoview IV was injected at rest. CARDIAC STRESS: The patient underwent pharmacological perfusion study under the supervision of an attending staff using standard Lexiscan protocol. Baseline rhythm was sinus. During stress, no convincing ischemia. Rare PVCs. No chest pain. Had minimal shortness of breath. RAW DATA: Increased subdiaphragmatic activity. Resting LV ejection fraction 81% and stress LV ejection fraction 87% without any obvious wall motion abnormalities. Resting end-diastolic volume 68 mL. TID ratio 1.0, which is within normal limit. Lung/heart ratio 0.39, which is within normal limit. MYOCARDIAL PERFUSION SCAN: Stress supine, resting supine, and stress prone images were compared to each other. Stress supine and resting supine images revealed small size, mildly decreased perfusion of distal inferolateral wall, which got resolved during stress prone images suggestive of tissue attenuation artifact. Stress prone images revealed normal myocardial perfusion. CONCLUSION: This is a normal myocardial perfusion study with evidence of tissue attenuation artifact. It got resolved during stress prone images. Preserved LV function. No obvious wall motion abnormalities. Normal TID ratio and lung heart ratio. No ischemic EKG changes. Overall, low-risk myocardial perfusion scan. Discussed the finding with our hospitalist, Dr. Kris Tubbs. Lisette Retana VARUN/alissa/MARCIANO doc#: [id number]/job#: [id number] dd: 07/29/2024 12:59:00 dt: 07/29/2024 14:28:00 DICTATING MD/COPIES TO: Yazan Schroeder MD COPIES MNE: ERICKA;
== END 2024-07-29 14:10 | disposition home or self-care (01) | DRG 305 ==
LOC: ED 23:52 → AC 23:52
PROVIDERS: Hospitalist; Admitting Provider Internal Medicine; Emergency Provider Emergency Medicine; PCP Family Medicine; Referring Provider Emergency Medicine; Visit Provider Internal Medicine
DX: I16.1 Hypertensive emergency (principal); I24.89 Other forms of acute ischemic heart disease; E78.5 Hyperlipidemia, unspecified; I10 Essential (primary) hypertension
CPT/HCPCS: 36415; 70450; 71045; 78452; 80048; 80053; 82550; 83690; 83735; 83880; 84484; 85014; 85018; 85025; 85049; 85610; 85730; 93005; 93017; 93306; 96365; 96375; 99284; 99285; A9502; J0360; J1644; J2405; J2785

== ENCOUNTER 2024-11-05 06:53 | Emergency (ER) | payer OTHER, SELFPAY ==
[2024-07-28 00:52] VITALS: BMI 30.6
[2024-11-05] VITALS (16 sets, daily range): BP systolic 136–194; BP diastolic 73–89; PULSE 52–87; RESP 13–24; TEMP 36.4–36.5; O2SAT 97–100; BMI 30.9
--- NOTE | 2024-11-05 07:05 | EKG_ITS ---
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
--- NOTE | 2024-11-05 08:06 | PC.NURSE ---
Pt reports feeling off balance, headache every night, upset stomach x3 days, currently on 2 blood pressure meds---last started a new bp med in July. Pt states she has not been exposed to anyone sick that she is aware of.
--- NOTE | 2024-11-05 08:07 | DI.RAD.S_ITS ---
PROCEDURE: XR CHEST 1V INDICATIONS: chest pain TECHNIQUE: One view of the chest was acquired. COMPARISON: [facility], CR, XR CHEST 1V, 07/27/2024, 18:58. FINDINGS: Surgical changes and devices: None. Lungs and pleura: Lungs are clear. No pleural effusions or pneumothorax. Mediastinum: Mediastinal contours appear normal. Heart size is normal. Bones and chest wall: No suspicious bony lesions. Overlying soft tissues appear unremarkable. IMPRESSION: No acute cardiopulmonary abnormality is seen. Approved by: Jos Mckeon M.D. on 11/05/2024 at 8:28
[2024-11-05 08:21] LABS: INR 0.9 (0.9-1.3); Prothrombin Time 10.5 SECONDS (9.4-12.5)
[2024-11-05 08:23] LABS: Add Manual Diff / Slide Review NO; Basophils Absolute Auto 100 /uL (0-100); Basophils Percent Auto 0.8 % (0-2); Eosinophils Absolute Auto 100 /uL (0-450); Eosinophils Percent Auto 1.7 % (2-4); Hematocrit 41.5 % (36-46); Hemoglobin 13.9 g/dL (12.0-16.0); Lymphocytes Absolute Auto 1200 /uL (1100-4500); Lymphocytes Percent Auto 19.8 % (25-40); Mean Corpuscular HGB Conc 33.5 % (30-36); Mean Corpuscular Hemoglobin 30.6 PG (26-34); Mean Corpuscular Volume 91.2 fL (80-100); Monocytes Absolute Auto 500 /uL (0-900); Monocytes Percent Auto 7.5 % (3-14); Neutrophils Absolute Auto 4400 /uL (1500-7000); Neutrophils Percent Auto 70.2 % (50-75); Platelet Count 275 X10^3/uL (150-400); Red Blood Cell Count 4.55 X10^6/uL (4.0-5.2); Red Cell Distribution Width 13.5 % (11.6-14.8); White Blood Cell Count 6.3 X10^3/uL (4.5-11.0)
[2024-11-05 08:24] LABS: PTT Partial Thromboplastin Tim 32 SECONDS (25.1-36.5)
[2024-11-05 08:27] LABS: Alanine Aminotransferase 29 IU/L (<35); Albumin 4.4 g/dL (3.5-5.0); Albumin Globulin Ratio 1.5 (1.0-2.8); Alkaline Phosphatase 86 U/L (38-126); Aspartate Aminotransferase 30 IU/L (14-36); Bilirubin Total 0.6 mg/dL (0.2-1.3); Blood Urea Nitrogen 14 mg/dL (7-17); Calcium 9.3 mg/dL (8.4-10.2); Carbon Dioxide 26 mmol/L (22-32); Chloride 108 mmol/L (98-107); Creatine Kinase 62 U/L (30-135); Estimated Glomerular Filt Rate > 60 mL/min (>60); Glucose 106 mg/dL (80-110); Lipase 31 U/L (23-300); Magnesium 2.1 mg/dL (1.6-2.3); Potassium 3.8 mmol/L (3.4-5.1); Sodium 140 mmol/L (137-145); Total Protein 7.4 g/dL (6.3-8.2)
[2024-11-05 08:36] LABS: NT-proBNP (BNP-Adult 18+) 84 pg/mL (<125)
[2024-11-05 08:37] LABS: HEMOLYSIS 52 (0-50)
[2024-11-05 08:38] LABS: Troponin I < 0.012 ng/mL (0.01-0.034)
--- NOTE | 2024-11-05 08:56 | ED_ITS ---
HPI - General Adult General Chief complaint: Hypertension Stated complaint: high blod pressure, off balance Time Seen by Provider: 11/05/24 08:33 Source: patient Mode of arrival: Ambulatory History of Present Illness HPI narrative: Patient 74-year-old female history of hypertension with previous admission for hypertensive urgency with elevated troponins, hyperlipidemia presenting today with elevated blood pressure and headache. She reports that for the last 2-3 days she has had some elevation in her blood pressure. She reports her blood pressure twice a day highest blood pressure recorded is 153. However today she had a systolic in the 180. She says she was has a headache it was worse today it has a little bit better. She was having some balance issues which is also not abnormal for her. She feels like she is walking on her heels a little bit and maybe lean to 1 side. This has been ongoing for a couple of days although she reports some improvement. She reports that this also happens to her occasionally. She has no chest pain fever nausea vomiting shortness of breath or other symptoms. Related Data Home Medications Medication Instructions Recorded Confirmed losartan 50 mg tablet 50 mg PO DAILY 07/27/24 07/27/24 simvastatin 40 mg tablet 40 mg PO ONCE PM 07/27/24 07/27/24 Previous Rx's Medication Instructions Recorded amlodipine 5 mg tablet (Norvasc) 2.5 mg (1/2 x 5 mg) PO DAILY #30 07/29/24 tabs Allergies Allergy/AdvReac Type Severity Reaction Status Date / Time No Known Drug Allergies Allergy Verified 07/27/24 18:55 Patient History Medical History Hypertension Social History household members: none Smoking Status: Never smoker alcohol intake: never Smoking Status: Never smoker Exam Initial Vital Signs Initial Vital Signs: Vital Signs Temperature 97.7 F 11/05/24 06:55 Pulse Rate 87 11/05/24 06:55 Respiratory Rate 17 11/05/24 06:55 Blood Pressure 180/89 H 11/05/24 06:55 Pulse Oximetry 97 11/05/24 06:55 Oxygen Delivery Method Room Air 11/05/24 06:55 GENERAL: Alert well-appearing 74-year-old female and in no acute distress. HEENT: Head atraumatic,EOMI, pupils reactive, face symmetric, moist mucous membranes CARDIOVASCULAR: Regular rate and rhythm without murmurs, rubs or gallops. RESPIRATORY: Breath sounds equal bilaterally, no wheezes rales or rhonchi. ABDOMEN: Soft, nontender. Normoactive bowel sounds all 4 quadrants. No guarding or rebound. EXTREMITIES: Normal range of motion, no clubbing or edema. Neurovascularly intact NEUROLOGICAL: Alert and oriented x4.Normal gait and speech. Cranial nerves II through XII grossly intact. Good lgaccs-pi-cpkd, good qndy-am-nfcb, strength equal bilaterally, no dysarthria or aphasia, sensation in tact to soft touch bilaterally, no visual changes, no facial droop SKIN: Warm, dry, no laceration, no petechiae, no rashes or lesions. Scores NIH Stroke Scale Level of Conciousness: Alert, keenly responsive Ask month/age: Answers both questions correctly. Open/close eyes, close hand: Performs both tasks correctly Best gaze horizontal: Normal Visual pham: No visual loss Facial palsy: Normal symetrical movement Left arm drift: No drift for full 10 sec Right arm drift: No drift for full 10 sec Left leg drift: No drift for full 5 sec Right leg drift: No drift for full 5 sec Limb ataxia: Absent Sensory on face/arms/legs: Normal, no sensory loss Best language: No aphasia, normal Dysarthria: Normal Extinction or inattention: No abnormality Total NIH Stroke scale score: 0 Course Orders Ordered: Discontinued Medications Aspirin (Aspirin 81 Mg Chew Tab) 324 mg PO NOW ONE Stop: 11/05/24 08:08 Last Admin: 11/05/24 09:47 Dose: 324 mg Documented By: CATHRYN Vital Signs Vital signs: Vital Signs - 8 hr 11/05/24 10:51 Temperature 97.6 F Pulse Rate 55 L Respiratory Rate 16 Blood Pressure 169/74 H Pulse Oximetry 97 Oxygen Delivery Method Room Air Medical Decision Making Lab Data 11/05/24 08:04 11/05/24 08:04 Labs: Lab Results 11/05/24 Range/Units 08:04 WBC 6.3 (4.5-11.0) X10^3/uL RBC 4.55 (4.0-5.2) X10^6/uL Hgb 13.9 (12.0-16.0) g/dL Hct 41.5 (36-46) % MCV 91.2 (80-100) fL MCH 30.6 (26-34) PG MCHC 33.5 (30-36) % RDW 13.5 (11.6-14.8) % Plt Count 275 (150-400) X10^3/uL Neut % (Auto) 70.2 (50-75) % Lymph % (Auto) 19.8 L (25-40) % Kane % (Auto) 7.5 (3-14) % Eos % (Auto) 1.7 L (2-4) % Baso % (Auto) 0.8 (0-2) % Neut # (Auto) 4400 (6739-1930) /uL Lymph # (Auto) 1200 (1387-2284) /uL Kane # (Auto) 500 (0-900) /uL Eos # (Auto) 100 (0-450) /uL Baso # (Auto) 100 (0-100) /uL PT 10.5 (9.4-12.5) SECONDS INR 0.9 (0.9-1.3) APTT 32 (25.1-36.5) SECONDS Sodium 140 (137-145) mmol/L Potassium 3.8 (3.4-5.1) mmol/L Chloride 108 H (98-107) mmol/L Carbon Dioxide 26 (22-32) mmol/L BUN 14 (7-17) mg/dL Creatinine 0.70 (0.52-1.04) mg/dL Estimated GFR > 60 (>60) mL/min BUN/Creatinine Ratio 20.0 (6-22) Glucose 106 (80-110) mg/dL Calcium 9.3 (8.4-10.2) mg/dL Magnesium 2.1 (1.6-2.3) mg/dL Total Bilirubin 0.6 (0.2-1.3) mg/dL AST 30 (14-36) IU/L ALT 29 (<35) IU/L Alkaline Phosphatase 86 (38-126) U/L Total Creatine Kinase 62 (30-135) U/L Troponin I < 0.012 (0.01-0.034) ng/mL NT-Pro-B Natriuret Pep 84 (<125) pg/mL Total Protein 7.4 (6.3-8.2) g/dL Albumin 4.4 (3.5-5.0) g/dL Globulin 3.0 (1.7-4.1) g/dL Albumin/Globulin Ratio 1.5 (1.0-2.8) Lipase 31 (23-300) U/L Imaging Data CTA - brain/neck: Radiologist's Impression: PROCEDURE: CT ANGIO HEAD AND NECK INDICATIONS: DE SOUZA balance issues, HTN TECHNIQUE: After the administration of intravenous contrast, 1 mm thick sections acquired from the aortic arch through the [place] of [place]. 3-dimensional hvvosvs-bylnvfgoq-hpdwazhfhx (MIP) and/or volume rendering reformats were acquired of the central intracranial vasculature and neck separately. For radiation dose reduction, the following was used: automated exposure control, adjustment of mA and/or kV according to patient size. COMPARISON: [facility], CT, CT HEAD/BRAIN WO CON, 07/27/2024, 19:42. FINDINGS: Image quality: Diagnostic. BRAIN: The ventricular system and cortical sulci demonstrate atrophy, consistent for the patient's stated age. There are areas of hypodensity within the periventricular and subcortical white matter. There is no acute intra-or extra axial fluid collection. No acute hemorrhage, mass lesion or midline shift. Brainstem is unremarkable. Globes are symmetrical. Sinuses are aerated. Osseous structures are intact. HEAD CT ANGIOGRAPHY: Anterior circulation: Intracranial internal carotid arteries are normal in size and flow. The flow within the paired anterior cerebral arteries is normal and symmetric. The flow within the middle cerebral arteries is normal and symmetric. The anterior communicating artery is seen. No aneurysms are seen. Posterior circulation: Left vertebral artery dominance. Visualized portions of the vertebral arteries demonstrate normal caliber, and join to form a normal appearing basilar artery. Flow within the posterior cerebral arteries is normal and symmetric. No aneurysms are seen. NECK CT ANGIOGRAPHY: Carotid system: The great vessels demonstrate a conventional anatomy as they arise from the aortic arch. The origins of the common carotid arteries appear patent. The common carotid arteries demonstrate normal caliber and courses. The bifurcation regions are both widely patent. The internal carotid arteries demonstrate normal calibers and courses. Posterior circulation: The origins of the vertebral arteries both appear widely patent. The more superior extracranial portions of both vertebral arteries also demonstrate normal courses and calibers. They join to form a normal appearing basilar artery. Soft tissues: Visualized neck soft tissues demonstrate no suspicious abnormalities. Bones: No suspicious bony lesions. Visualized cervical spine appears normally aligned. IMPRESSION: No significant intracranial arterial abnormality is seen. No significant abnormality is seen within the arteries of the neck. Any quantitative measurements of stenosis were performed using NASCET criteria. Dictated by: Dee Dean M.D. on 11/05/2024 at 10:03 ECG Data Attestation: I personally reviewed and interpreted this ECG as follows: Prior ECG tracings: available for review Interpretation: Normal sinus rhythm rate 67 NJ interval 170 QRS [address] changes MDM Narrative Medical decision making narrative: MDM CC: Elevated blood pressure balance issues Complicating co-morbidities: High blood pressure Medical records reviewed: Home records of blood pressure reviewed Differential considered: CVA hypertensive emergency/hypertensive urgency Exam documented above, pertinent findings include: NIH 0 awake alert oriented nontoxic Lab Test results independently reviewed as above. Pertinent findings: No evidence of end-organ damage troponin negative no SRUTHI no leukocytosis or anemia Independently reviewed EKG as above Sinus rhythm Imaging studies independently reviewed: Chest x-ray no acute cardiopulmonary process CT angio no abnormalities Consultations: None Treatments: None Re-evaluations: Patient remains stable blood pressure is variable does differ sometimes between arms but not significantly Discussion: 74-year-old female presenting today with elevated blood pressure. She has no evidence of end-organ damage blood pressure actually does come down to 136/80. She has an appointment with her primary care provider coming up. She does not have persistently elevated blood pressures at home she is dependable and checks them regularly. At this time no further workup or treatment indicated in the emergency department Discharge Plan Departure Patient Disposition: Home Clinical Impression: Hypertension Instructions: DI for High Blood Pressure Activity Restrictions/Additional Instructions: *You have been diagnosed with elevated blood pressure *What to do: At this time please follow-up with your primary care provider. Please continue to check your blood pressures daily *Continue to take medications as directed *Follow up with your primary care provider in 2-3 days or call [phone] *Return to ER if you should have increasing balance issues, headache chest pain shortness of or any new, worsening or concerning symptoms Prescriptions: No Action losartan 50 mg tablet 50 mg PO DAILY simvastatin 40 mg tablet 40 mg PO ONCE PM amlodipine [Norvasc] 5 mg Tablet 2.5 mg PO DAILY Qty: 30 2RF Referrals: Irwin Davis MD [Primary Care Provider] - Stand Alone Forms: Patient Portal/API/Survey
--- NOTE | 2024-11-05 09:08 | DI.CT.S_ITS ---
PROCEDURE: CT ANGIO HEAD AND NECK INDICATIONS: DE SOUZA balance issues, HTN TECHNIQUE: After the administration of intravenous contrast, 1 mm thick sections acquired from the aortic arch through the [place] of [place]. 3-dimensional zhdvquk-zvsejtbhb-uggcbhhnoc (MIP) and/or volume rendering reformats were acquired of the central intracranial vasculature and neck separately. For radiation dose reduction, the following was used: automated exposure control, adjustment of mA and/or kV according to patient size. COMPARISON: [facility], CT, CT HEAD/BRAIN WO CON, 07/27/2024, 19:42. FINDINGS: Image quality: Diagnostic. BRAIN: The ventricular system and cortical sulci demonstrate atrophy, consistent for the patient's stated age. There are areas of hypodensity within the periventricular and subcortical white matter. There is no acute intra-or extra axial fluid collection. No acute hemorrhage, mass lesion or midline shift. Brainstem is unremarkable. Globes are symmetrical. Sinuses are aerated. Osseous structures are intact. HEAD CT ANGIOGRAPHY: Anterior circulation: Intracranial internal carotid arteries are normal in size and flow. The flow within the paired anterior cerebral arteries is normal and symmetric. The flow within the middle cerebral arteries is normal and symmetric. The anterior communicating artery is seen. No aneurysms are seen. Posterior circulation: Left vertebral artery dominance. Visualized portions of the vertebral arteries demonstrate normal caliber, and join to form a normal appearing basilar artery. Flow within the posterior cerebral arteries is normal and symmetric. No aneurysms are seen. NECK CT ANGIOGRAPHY: Carotid system: The great vessels demonstrate a conventional anatomy as they arise from the aortic arch. The origins of the common carotid arteries appear patent. The common carotid arteries demonstrate normal caliber and courses. The bifurcation regions are both widely patent. The internal carotid arteries demonstrate normal calibers and courses. Posterior circulation: The origins of the vertebral arteries both appear widely patent. The more superior extracranial portions of both vertebral arteries also demonstrate normal courses and calibers. They join to form a normal appearing basilar artery. Soft tissues: Visualized neck soft tissues demonstrate no suspicious abnormalities. Bones: No suspicious bony lesions. Visualized cervical spine appears normally aligned. IMPRESSION: No significant intracranial arterial abnormality is seen. No significant abnormality is seen within the arteries of the neck. Any quantitative measurements of stenosis were performed using NASCET criteria. Dictated by: Dee Dean M.D. on 11/05/2024 at 10:03 Approved by: Dee Dean M.D. on 11/05/2024 at 10:05
[2024-11-05] MEDS: ASPIRIN 81 MG CHEW TAB 324 MG PO (09:47)
== END 2024-11-05 10:52 | disposition home or self-care (01) ==
PROVIDERS: Emergency Provider Emergency Medicine; PCP Family Medicine
DX: I10 Essential (primary) hypertension (principal); R51.9 Headache, unspecified; R07.9 Chest pain, unspecified; R29.700 NIHSS score 0
CPT/HCPCS: 70496; 70498; 71045; 80053; 82550; 83690; 83735; 83880; 84484; 85025; 85610; 85730; 93005; 93010; 99283; 99284; Q9967